=== PATIENT | male | born 1990 | race Caucasian/White ===

== ENCOUNTER 2017-12-14 05:32 | Emergency (ER) | payer OTHER ==
[~2017-12-14] VITALS: Ht 177.8 cm; Wt 74.8 kg
[2017-12-14 05:39] VITALS: Ht 177.8 cm; Wt 74.8 kg
[2017-12-14 08:28] VITALS: BP 132/75
== END 2017-12-14 08:28 | disposition home or self-care (01) ==
LOC: ED 05:32
DX: F11.23 Opioid dependence with withdrawal (principal)
CPT/HCPCS: J1885; Q0162